=== PATIENT | male | born 1950 | race Caucasian/White ===

== ENCOUNTER 2022-04-23 07:22 | Outpatient (CLI) | payer MEDICARE, SELFPAY ==
[2022-04-23 13:21] LABS: Albumin* 4.6 g/dL (3.3-5.0); Chloride* 101 mmol/L (96-114); Potassium* 4.3 mmol/L (3.6-5.1); Sodium* 135 mmol/L (135-149)
[2022-04-23 13:23] LABS: Bilirubin Total* 1.5 mg/dL (0.1-1.5); Carbon Dioxide* 24 mmol/L (20-32); Cholesterol* 127 mg/dL (90-199); Creatinine* 0.9 mg/dL (0.5-1.5); Estimated Glomerular Filt Rate 91 ml/min; Total Protein* 7.4 g/dL (6.0-8.3)
[2022-04-23 13:24] LABS: Alanine Aminotransferase* 22 U/L (4-50); Alkaline Phosphatase* 91 U/L (40-150); Aspartate Amino Transferase* 27 U/L (12-35); Blood Urea Nitrogen* 16 mg/dL (7-30); Calcium* 9.2 mg/dL (8.4-10.6); Glucose* 175 mg/dL (60-115); HDL Cholesterol* 37 mg/dL (>=40); LDL Cholesterol Calculated 67 mg/dL (<100); Triglycerides* 117 mg/dL (40-149)
== END 2022-04-23 07:23 | disposition home or self-care (01) ==
PROVIDERS: PCP Physician Assistant Medical; Visit Provider Physician Assistant Medical
DX: E78.5 Hyperlipidemia, unspecified (principal); E11.9 Type 2 diabetes mellitus without complications; I10 Essential (primary) hypertension
CPT/HCPCS: 80053; 80061

== ENCOUNTER 2023-03-29 08:52 | Outpatient (CLI) | payer MEDICARE, SELFPAY | END 2023-03-29 08:53 | disposition home or self-care (01) | LOC: NFLDREF 03-31 01:59 | PROVIDERS: PCP Physician Assistant Medical; Referring Provider Physician Assistant Medical; Visit Provider Physician Assistant Medical | DX: E11.9 Type 2 diabetes mellitus without complications (principal); E78.5 Hyperlipidemia, unspecified; I10 Essential (primary) hypertension; Z12.5 Encounter for screening for malignant neoplasm of prostate | CPT/HCPCS: 80053; 80061; 84153 ==

== ENCOUNTER 2023-10-25 07:52 | Outpatient (CLI) | payer MEDICARE, SELFPAY | END 2023-10-25 07:53 | disposition home or self-care (01) | LOC: NFLDREF 11-02 07:07 | PROVIDERS: PCP Physician Assistant Medical; Referring Provider Physician Assistant Medical; Visit Provider Physician Assistant Medical | DX: E11.65 Type 2 diabetes mellitus with hyperglycemia (principal); Z79.84 Long term (current) use of oral hypoglycemic drugs; Z79.85 Long-term (current) use of injectable non-insulin antidiabetic drugs | CPT/HCPCS: 83036 ==

== ENCOUNTER 2024-04-26 08:20 | Outpatient (CLI) | payer MEDICARE, SELFPAY | END 2024-04-26 08:21 | disposition home or self-care (01) | LOC: NFLDREF 04-28 12:56 | PROVIDERS: PCP Physician Assistant Medical; Referring Provider Physician Assistant Medical; Visit Provider Physician Assistant Medical | DX: Z01.818 Encounter for other preprocedural examination (principal); E11.9 Type 2 diabetes mellitus without complications; E78.5 Hyperlipidemia, unspecified; I10 Essential (primary) hypertension; H02.403 Unspecified ptosis of bilateral eyelids; E78.2 Mixed hyperlipidemia; Z12.5 Encounter for screening for malignant neoplasm of prostate | CPT/HCPCS: 80053; 80061; 82043; 82570; G0103 ==

== ENCOUNTER 2025-03-01 13:00 | Outpatient (CLI) | payer MEDICARE, SELFPAY | END 2025-03-01 13:01 | disposition home or self-care (01) | LOC: NFLDREF 03-06 16:12 | PROVIDERS: PCP Physician Assistant Medical; Referring Provider Physician Assistant Medical; Visit Provider Family Medicine | DX: K29.70 Gastritis, unspecified, without bleeding (principal) | CPT/HCPCS: 87338 ==